=== PATIENT | female | born 2005 | race Two or more races ===

== ENCOUNTER 2024-06-05 16:08 | Emergency (ER) | payer OTHER ==
[~2024-06-05] VITALS: Ht 157.5 cm; Wt 63.5 kg
[2024-06-05] MEDS ORDERED: METHYLPREDNISOLONE SOD SUCC 125 MG VIAL IV SCH (17:00)
[2024-06-05] MEDS ORDERED: ALBUTEROL SULFATE 3 ML/2.5 MG AMPUL.NEB IH SCH (17:00)
== END 2024-06-05 19:47 | disposition home or self-care (01) ==
LOC: ER 16:10 → EMR PED 16:12 → ER 16:12 → EMR PED 19:47
DX: J45.909 Unspecified asthma, uncomplicated (principal); F41.8 Other specified anxiety disorders; Z20.822 Contact with and (suspected) exposure to COVID-19

== ENCOUNTER 2024-09-24 13:44 | Emergency (ER) | payer OTHER ==
[~2024-09-24] VITALS: Ht 157.5 cm; Wt 113.4 kg
[2024-09-24 15:29] LABS: HEMATOCRIT 36.6 % (36.0-45.00); MEAN CELL VOLUME 85.6 fL (80.00-100.00); MEAN CORPUSCULAR HEMOGLOBIN 28.1 pg (27.00-32.0); MEAN CORPUSCULAR HGB CONC 32.8 g/dl (32.0-36.0); PLATELET COUNT 244 K/uL (150-450); RED BLOOD COUNT 4.27 M/uL (4.00-6.00)
[2024-09-24 15:54] LABS: BILIRUBIN TOTAL 0.7 mg/dL (0.3-1.2); CALCIUM 9.1 mg/dL (8.5-10.1); CREATININE SERUM 0.66 mg/dL (0.55-1.02); GFR 114.18; POTASSIUM 3.9 mEq/L (3.5-5.1)
[2024-09-24 18:00] LABS: PH,URINE 7.5 (5.0-8.0); URINE APPEARANCE Clear; URINE BILIRRUBIN Negative (NEGATIVE); URINE BLOOD Negative; URINE COLOR Yellow; URINE EPITHELIAL CELLS 32.4 uL (0.0-38.8); URINE GLUCOSE Negative (NEGATIVE); URINE KETONE Trace (NEGATIVE); URINE LEUKOCYTE Trace; URINE NITRATE Positive; URINE PROTEIN Negative (NEGATIVE); URINE RBC 8.6 uL (0.0-20.8)
[2024-09-24 18:01] LABS: URINE BACTERIA > 9821.5 uL (0.0-1933); URINE CAST 0.29 uL (0.0-1.40)
[2024-09-24] MEDS ORDERED: CEFTRIAXONE SODIUM 2,000 MG VIAL IM STA (18:46)
== END 2024-09-24 19:03 | disposition home or self-care (01) ==
LOC: ER 13:47 → EMR PED 13:47
PROVIDERS: Emergency Medicine Pediatric Emergency Medicine
DX: B34.9 Viral infection, unspecified (principal); H65.90 Unspecified nonsuppurative otitis media, unspecified ear; N39.0 Urinary tract infection, site not specified; R53.81 Other malaise; R05.9 Cough, unspecified; J32.9 Chronic sinusitis, unspecified; Z20.822 Contact with and (suspected) exposure to COVID-19